=== PATIENT | female | born 1980 | race Caucasian/White ===

== ENCOUNTER 2017-01-07 19:56 | Emergency (ER) | payer MEDICAID ==
[~2017-01-07] VITALS: Ht 160 cm; Wt 66.7 kg
[~2017-01-07 19:56] MED LIST: FERR325E14 PO; FOLI1TAB19 PO; PREN-502 PO
[2017-01-07 20:01] VITALS: BP 108/67
--- NOTE | 2017-01-07 21:06 | NUR ---
Patient to bed 03.
--- NOTE | 2017-01-07 21:11 | NUR ---
PATIENT PRESENTS TO ED WITH C/O LEFT SHOULDER X 1 DAY. . PT STATES NO TRAUMA OR FALL OR SX . PT DENIES N/V/D; SKIN IS PINK/WARM/DRY; AAOX4 WITH EVEN AND STEADY GAIT; LUNGS CLEAR BL; HR EVEN AND REGULAR; PT DENIES ANY FEVER, CP, SOB, OR COUGH AT THIS TIME; PATIENT STATES PAIN OF 8/10 AT THIS TIME; VSS; PATIENT POSITIONED FOR COMFORT; HOB ELEVATED; BEDRAILS UP X2;BED DOWN. ER MD MADE AWARE OF PT STATUS.
--- NOTE | 2017-01-07 21:15 | NUR ---
Patient being evaluated by physician DR SALAMANCA at bedside.
--- NOTE | 2017-01-07 21:55 | NUR ---
PT LEFT FOR XRAY VIA WC, ACCOMPANIED BY PRINCIPAL DEVELOPER
--- NOTE | 2017-01-07 22:25 | NUR ---
PT RETURN FROM XRAY
--- NOTE | 2017-01-07 23:02 | NUR ---
Patient discharged with v/s stable. Written and verbal after care instructions given and explained. Patient alert, oriented and verbalized understanding of instructions. Ambulatory with steady gait. All questions addressed prior to discharge. ID band removed. Patient advised to follow up with PMD. Rx of NORCO 5/325, MOTRIN 800MG, FLEXERIL 10MG given. Patient educated on indication of medication including possible reaction and side effects. Opportunity to ask questions provided and answered.
[2017-01-07 23:03] VITALS: BP 114/72
== END 2017-01-07 23:02 | disposition home or self-care (01) ==
LOC: MED 19:56
DX: S46.912A Strain of unspecified muscle, fascia and tendon at shoulder and upper arm level, left arm, initial encounter (principal); X58.XXXA Exposure to other specified factors, initial encounter; Y93.89 Activity, other specified; Y92.89 Other specified places as the place of occurrence of the external cause; Y99.8 Other external cause status
CPT/HCPCS: 71010; 73030; 81025; 99284

== ENCOUNTER 2022-04-27 14:49 | Emergency (ER) | payer MEDICAID ==
[~2022-04-27] VITALS: Ht 162.6 cm; Wt 76.2 kg
[2022-04-27 14:54] VITALS: BP 122/72
[2022-04-27] MEDS ORDERED: IBUP-2213 PO (17:11)
[2022-04-27] MEDS ORDERED: PROM118S5 PO (17:11)
--- NOTE | 2022-04-27 17:20 | NUR ---
41F PRESENTS TO ED WITH C/O COUGH, CHEST TIGHTNESS, CONGESTION, SORE THROAT AND SOB X3DAYS. PT REPORTS TAKING PROMETHAZINE AND MOTRIN WITH NO RELIEF. PT STATES KIDS AT HOME TESTED POSITIVE FOR FLU TWO DAYS AGO.
--- NOTE | 2022-04-27 17:27 | NUR ---
Patient discharged with v/s stable. Written and verbal after care instructions ABOUT UPPER RESPIRATORY INFECTION given and explained. Patient alert, oriented and verbalized understanding of instructions. Ambulatory with steady gait. All questions addressed prior to discharge. ID band removed. Patient advised to follow up with PMD. Rx of MOTRIN, AND PROMETHAZINE given. Patient educated on indication of medication including possible reaction and side effects. Opportunity to ask questions provided and answered.
== END 2022-04-27 17:27 | disposition home or self-care (01) ==
LOC: MED 14:49
DX: J06.9 Acute upper respiratory infection, unspecified (principal); Z20.822 Contact with and (suspected) exposure to COVID-19
CPT/HCPCS: 71045; 99284